=== PATIENT | female | born 1985 | race Caucasian/White ===

== ENCOUNTER 2017-08-08 13:09 | Emergency (ER) | payer OTHER ==
[2017-08-08] MEDS ORDERED: ADENOSINE 6 MG/2 ML VIAL ONE (13:23)
--- NOTE | 2017-08-08 13:25 | CPEKG ---
Heart Rate: 219 RR Interval: 274 QRSD Interval: 84 QT Interval: 212 QTC Interval: 405 P [place]: 0 QRS [place]: 60 T Wave [place]: 245 EKG Severity - ABNORMAL ECG - EKG Impression: SUPRAVENTRICULAR TACHYCARDIA EKG Impression: PROBABLE LVH WITH SECONDARY REPOL ABNRM EKG Impression: ST DEPRESSION, PROBABLY RATE RELATED Electronically Signed By: Adenike Contreras 08-Aug-2017 13:45:33
--- NOTE | 2017-08-08 13:31 | EDPHY ---
HPI/HX/ROS/PE/MDM Narrative: CHIEF COMPLAINT: Tachycardia HISTORY OF PRESENT ILLNESS: This patient is a 31 year old female complaining of rapid heart rate. She has history of sinus tachycardia, and reports brief intermittent episodes similar to today which self-resolved over 10-15 min. She wore a Holter monitor for one month in 2014 which did not capture any episodes. She was prescribed metoprolol , but is not currently taking that medication. Usually, her racing heart sensation resolves within 30 minutes. This is the first time she has presented to the emergency department. Today, the sensation began around 11:30am while she was in the passenger seat of the car. She can feel her heart racing. This is accompanied by a sensation of tightness which is increased with deep inspiration. The patient takes oral contraceptives, but otherwise does not take any medications. She denies history of clotting disorders. Family history positive for atrial fibrillation, CAD. No fever, chills, vomiting, diarrhea, urinary complaints, headache, lightheadedness. REVIEW OF SYSTEMS: Aside from elements discussed in the HPI, a comprehensive 10-point review of systems was reviewed and is negative. PAST MEDICAL HISTORY: Sinus tachycardia. SOCIAL HISTORY: Friend at bedside. No illicit drug or alcohol use. Occasional marijuana use. Former smoker, quit 2014. VITAL SIGNS: Reviewed by m. HR 273. Strong radial pulses. GENERAL: Well-developed, well-nourished, no respiratory distress. Somewhat anxious. HEENT: Atraumatic. Eyes: No icterus, no injection. Mouth: moist mucous membranes. No erythema or lesions. Neck: supple with no adenopathy. LUNGS: Clear to auscultation bilaterally, no wheezes, rhonchi or rales. CARDIAC: Extreme tachycardia. Regular. Monitor demonstrates SVT at 273. ABDOMEN: Soft, nontender, nondistended, bowel sounds normal. BACK: No CVA tenderness. EXTREMITIES: No trauma. No edema. Range of motion is normal throughout. NEURO: Alert and oriented, grossly nonfocal. SKIN: Warm and dry, no rash. PSYCHIATRIC: Normal mentation, no agitation. Portions of this note were transcribed by a medical laboratory technician. I personally performed a history, physical exam, medical decision making, and confirmed accuracy of information the transcribed note. ED Course: 13:15 Evaluated patient. Heart rate 225-241. Plan for stat EKG. 12-LEAD EKG: Please see the full report in [facility]. My interpretation: SVT. Attempted Valsalva maneuver with elevation of legs. Patient remains in SVT. IV established. 13:28 Plan to administer adenosine. 13:28 Administered 6mg IV adenosine. Pause noted on the monitor. Patient converted to sinus rhythm. Initially 160s but rapidly a decreasing with fluids. 13:29 HR 160. Plan for repeat EKG. Plan for chest x-ray, labs including CBC, chemistries troponin, d-dimer, BHCG. 13:52 12-LEAD EKG: Please see the full report in [facility]. My interpretation: Sinus tachycardia. Patient is feeling nauseous. Administered 4mg IV Zofran. Chest x-ray negative for acute processes. 14:40 Patient heart rate is 102. 14:[address] Herrera, room cleaner. Plan to d/c home in good condition. Referral to Dr. Flores, room cleaner, provided. She should resume taking metoprolol. Plan for additional labs including TSH. Reassessed patient. She does not wish to resume metoprolol due to side effects. I will prescribe diltiazem instead. Follow up and return precautions discussed. She is comfortable with this plan. Further discussions held with the patient after her SVT have been terminated. Patient did were Holter monitor for prolonged period of time and never had any episodes similar to today. She was placed on metoprolol. She does also have a history of underlying elevated heart rate usually in the 90s to low 100s. MDM: Critical care time spent by me, Dr. Contreras exclusively with this patient was 35 minutes, exclusive of PA time and exclusive of procedures. The organ system at risk was cardiovascular and I attempted several non pharmacologic maneuvers to break the patient's SVT, administered adenosine, re-evaluated at bedside, and consulted with Cardiology to prevent worsening of the patients condition. Critical care time included obtaining history, performing a physical exam, bedside monitoring of interventions, collecting and interpreting tests and discussion with consultants but not including time spent performing procedures. Differential diagnosis of the patient's narrow complex tachycardia was considered including but not limited to various causes of sinus tachycardia, SVT , atrial flutter and atrial fibrillation. - Data Points Imaging Results: Impression: Negative for acute cardiopulmonary abnormality.. Dictated By: Bismark Phillips MD Laboratory Results: Laboratory Results 08/08/17 13:25 08/08/17 13:25 Medications Given: Discontinued Medications Adenosine (Adenosine) 6 mg IVP EDNOW ONE Stop: 08/08/17 13:33 Last Admin: 08/08/17 13:28 Dose: 6 mg Sodium Chloride (Ns) 1,000 mls @ 0 mls/hr IV ONCE ONE PRN Reason: Wide Open Stop: 08/08/17 13:33 Last Admin: 08/08/17 13:33 Dose: 1,000 mls Sodium Chloride (Ns) 1,000 mls @ 0 mls/hr IV EDNOW ONE; Wide Open PRN Reason: Protocol Stop: 08/08/17 13:42 Last Admin: 08/08/17 14:07 Dose: 1,000 mls Ondansetron HCl (Zofran) 4 mg IVP EDNOW ONE Stop: 08/08/17 14:07 Last Admin: 08/08/17 14:09 Dose: 4 mg General Time Seen by Provider: 08/08/17 13:16 Initial Vital Signs: Initial Vital Signs Temperature (C) 36.4 C 08/08/17 13:13 Heart Rate 237 H 08/08/17 13:13 Respiratory Rate 22 H 08/08/17 13:13 O2 Sat (%) 100 08/08/17 13:13 O2 Delivery Mode Room Air O2 (L/minute) 2 Allergies/Adverse Reactions: No Known Allergies Allergy (Unverified 08/08/17 13:11) Home Medications: Medication Instructions Recorded Bcp 08/08/17 Diltiazem HCl [Diltiazem 24Hr ER] 120 mg PO DAILY #30 cap.er.24h 08/08/17 Departure - Departure Disposition: Home, Routine, Self-Care Clinical Impression: SVT (supraventricular tachycardia) Condition: Good Instructions: Diltiazem (By mouth), Supraventricular Tachycardia (ED) Additional Instructions: 1. Follow up with Dr. Floers, room cleaner, as soon as possible. Call today for an appointment. 2. Take Diltiazem as prescribed. 3. Return to the emergency department for recurrence of SVT, chest pain, shortness of breath, or other worsening of condition. Referrals: JOSE MELENDREZ [Primary Care Provider] - As per Instructions Manoj Flores MD [Medical Doctor] - As per Instructions Prescriptions: Diltiazem HCl [Diltiazem 24Hr ER] 120 mg PO DAILY #30 cap.er.24h Report Scribed for: Adenike Contreras Report Scribed by: Shannon Priest Date of Report: 08/08/17 Time of Report: 14:58
[2017-08-08] MEDS ORDERED: ADENOSINE 6 MG/2 ML VIAL IVP ONE (13:32)
[2017-08-08] MEDS ORDERED: NS 1,000 ML IV ONE ×2 (13:32→13:41)
[2017-08-08 13:47] LABS: PLATELET COUNT 351 10^3/uL (150-400)
--- NOTE | 2017-08-08 13:54 | CPEKG ---
Heart Rate: 123 RR Interval: 488 P-R Interval: 108 QRSD Interval: 90 QT Interval: 324 QTC Interval: 464 P [place]: 79 QRS [place]: 58 T Wave [place]: -28 EKG Severity - BORDERLINE ECG - EKG Impression: SINUS TACHYCARDIA EKG Impression: INFERIOR Q WAVES, PROBABLY NORMAL VARIATION Electronically Signed By: Guerrero Rodriguez 09-Aug-2017 16:24:17
[2017-08-08] MEDS ORDERED: ONDANSETRON 4 MG/2 ML VIAL ONE (14:03)
[2017-08-08] MEDS ORDERED: ONDANSETRON 4 MG/2 ML VIAL IVP ONE (14:06)
[2017-08-08 14:28] VITALS: RESP 16
[2017-08-08 15:25] VITALS: BP 123/96; PULSE 116; TEMP 97.7; O2SAT 98
== END 2017-08-08 15:26 | disposition home or self-care (01) ==
DX: I47.1 Supraventricular tachycardia (principal); E86.9 Volume depletion, unspecified; Z87.891 Personal history of nicotine dependence
CPT/HCPCS: 96374; J0153; J2405

== ENCOUNTER 2017-09-27 11:08 | Observation (INO) | payer OTHER ==
[2017-09-27] MEDS ORDERED: NS 1,000 ML IV ONE (11:11)
--- NOTE | 2017-09-27 11:23 | PDHPUP ---
History & Physical Update H&P update statement: This history and physical update is based on an assessment of the patient which was completed after admission or registration (within 24 hours), but prior to the surgery/procedure. H&P update: H&P reviewed & patient examined, no change in patient's condition since H&P completed
[2017-09-27] MEDS ORDERED: MIDAZOLAM 2 MG/2 ML VIAL IVP ONE (11:28)
--- NOTE | 2017-09-27 11:31 | CPEKG ---
Heart Rate: 89 RR Interval: 674 P-R Interval: 120 QRSD Interval: 90 QT Interval: 372 QTC Interval: 453 P [place]: 0 QRS [place]: 43 T Wave [place]: 18 EKG Severity - NORMAL ECG - EKG Impression: SINUS RHYTHM Electronically Signed By: Thien Ortega 27-Sep-2017 15:51:36
[2017-09-27 11:46] LABS: PLATELET COUNT 315 10^3/uL (150-400)
[2017-09-27 11:54] LABS: INR 0.9 (0.83-1.16); PROTIME(PATIENT) 12.4 SEC (12.0-15.0)
[2017-09-27] MEDS ORDERED: HEPARIN 10,000 UNIT/10 ML MDV (1,000 UNIT/ML) ONE (12:03)
[2017-09-27] MEDS ORDERED: LIDOCAINE 1% 300 MG/30 ML SDV ONE (12:03)
[2017-09-27] MEDS ORDERED: BUPIVACAINE 0.5% 30 ML SDV ONE (12:04)
[2017-09-27] MEDS ORDERED: DIAZEPAM 5 MG TAB ONE (12:04)
[2017-09-27] MEDS ORDERED: ISOPROTERENOL HCL/D5W 0.2 MG/50 ML BAG IV ONE (12:04)
[2017-09-27] MEDS ORDERED: DIAZEPAM 5 MG TAB PO ONE ×2 (12:06→12:15)
[2017-09-27] MEDS ORDERED: MIDAZOLAM 2 MG/2 ML VIAL ONE (12:09)
--- NOTE | 2017-09-27 12:17 | PDANEPAE ---
ANE History of Present Illness Patient presents for SVT ablation ANE Past Medical History - Cardiovascular History Hx Arrhythmias: Yes - Pulmonary History Hx Oxygen in Use at Home: No Hx Sleep Apnea: No - Endocrine History Hx Diabetes: No ANE Review of Systems Review of Systems: - Exercise capacity Exercise capacity: >=4 METS ANE Patient History - Allergies Allergies/Adverse Reactions: No Known Allergies Allergy (Unverified 08/08/17 13:11) - Home Medications Home medications: home medication list seen and reviewed Home Medications: Desogestrel-Ethinyl Estradiol [[place]] 1 each PO DAILY 08/08/17 [Last Taken 1 Day Ago ~09/26/17] Multivitamins [Multivitamin (*)] 1 each PO DAILY 09/21/17 [Last Taken 1 Day Ago ~09/26/17] - NPO status NPO Status: no food or drink >8 hours - Anes Hx Anes Hx: no prior problems - Smoking Hx Smoking Status: Former smoker ANE Labs/Vital Signs - Labs Result Diagrams: 09/27/17 11:31 09/27/17 11:31 - Vital Signs Height: 162.56 cm Weight: 58.06 kg ANE Physical Exam - Airway Neck exam: FROM Mallampati Score: Class 1 - Pulmonary Pulmonary: no respiratory distress - Cardiovascular Cardiovascular: regular rate and rhythym - ASA Status ASA Status: II ANE Anesthesia Plan Anesthesia Plan: general endotracheal anesthesia (RBA discussed)
[2017-09-27] MEDS ORDERED: fentaNYL 100 MCG/2 ML INJ ONE (12:25)
[2017-09-27] MEDS ORDERED: PROPOFOL 200 MG/20 ML VIAL ONE (12:25)
[2017-09-27] MEDS ORDERED: PROPOFOL/EMULSION 500 MG/50 ML BOTTLE IV ONE ×2 (12:26→13:41)
[2017-09-27] MEDS ORDERED: LIDOCAINE 2% 5 ML SDV ONE (12:29)
[2017-09-27] MEDS ORDERED: ROCURONIUM 50 MG/5 ML VIAL ONE ×3 (12:30→13:43)
[2017-09-27] MEDS ORDERED: DEXAMETHASONE 4 MG/ML VIAL ONE (13:00)
[2017-09-27] MEDS ORDERED: ONDANSETRON 4 MG/2 ML VIAL ONE (13:00)
[2017-09-27] MEDS ORDERED: NALOXONE HCL 0.4 MG/ML INJ IVP PRN (14:24)
[2017-09-27] MEDS ORDERED: fentaNYL 100 MCG/2 ML INJ IVP PRN (14:24)
[2017-09-27] MEDS ORDERED: ONDANSETRON 4 MG/2 ML VIAL IVP PRN (14:24)
[2017-09-27] MEDS ORDERED: LR 500 ML IV PRN (14:24)
[2017-09-27] MEDS ORDERED: NEOSTIGMINE METHYLSULFATE 10 MG/10 ML MDV ONE (14:26)
[2017-09-27] MEDS ORDERED: GLYCOPYRROLATE 0.2 MG/1 ML VIAL ONE ×3 (14:26)
--- NOTE | 2017-09-27 14:46 | POSTANESTH ---
Post Anesthetic Evaluation Cardiovascular Status: Similar to Pre-Op Cond Respiratory Status: Similar to Pre-op Cond. Level of Consciousness/Mental Status: Alert and Oriented Pain Control: Adequate, Prn Tx Ordered Nausea/Vomiting Control: Adequate, Prn Tx Ordered Complications Possibly Related to Anesthesia: None Noted
[2017-09-27] MEDS: ASPIRIN 325 MG TAB PO SCH (17:37)
[2017-09-28 04:12] LABS: PLATELET COUNT 311 10^3/uL (150-400)
[2017-09-28 07:55] VITALS: BP 134/86
--- NOTE | 2017-09-28 08:58 | CPEKG ---
Heart Rate: 65 RR Interval: 923 P-R Interval: 93 QRSD Interval: 88 QT Interval: 388 QTC Interval: 404 P [place]: 0 QRS [place]: 50 T Wave [place]: 25 EKG Severity - BORDERLINE ECG - EKG Impression: SINUS RHYTHM EKG Impression: SHORT IA INTERVAL, ACCELERATED AV CONDUCTION Electronically Signed By: Thien Ortega 28-Sep-2017 11:23:30
[2017-09-28] MEDS ORDERED: DESOGESTREL ETHINYL ESTRADIOL PO SCH (09:00)
[2017-09-28] MEDS ORDERED: MULTIVITAMINS 1 EACH TAB PO SCH (09:00)
--- NOTE | 2017-09-28 09:46 | EPPROC ---
Electrophysiology Procedure Note: PROCEDURES PERFORMED: 68480-40 EP evaluation with RA/RV/LA pace/record, with arrhythmia induction 57576-80 EP evaluation with RA/RV pace record, insert/reposition catheter, with arrhythmia induction 08556 Intracardiac catheter ablation, SVT arrhythmogenic focus 81261 3D mapping Fluoroscopy INDICATION: This is a 31 yr old female with past history of palpitation with presyncope on a few occasions. On the last one she came to the ER and was found to be in SVT. She was successfully treated with Adenosine. Pt wanted a nursing home solution and did not want to use meds. Hence it was decided to perform EP study with plan for ablation. PROCEDURE: Catheters & Anesthesia: The patient arrived in the Electrophysiology Laboratory in the fasting state. The right clavicular region, right groin, and left groin area were prepped and draped in the usual sterile manner. Anesthesiologist administered general anesthesia. Appropriate non-invasive blood pressure, pulse oximetry and end- tidal CO2 monitoring was established. All catheters were placed percutaneously using the modified Seldinger technique , and advanced into position under fluoroscopic guidance. One CRD2 catheter was advanced to the His-bundle position via the right femoral vein. . One #7 [place] deflectable catheter with 10 pairs of electrodes was placed via the right femoral vein into the coronary sinus. Programmed stimulation was performed from the right atrium, right ventricle and coronary sinus (left atrium). Parahisian pacing demonstrated constant H-A interval with changing V-A intervals and stimulus-A intervals during capture and loss of capture of proximal RBB proving retrograde conduction over AV node. AVNRT was induced easily during testing for AVWB. Ventricular extrastimuli delivered during tachycardia without altering antegrade His bundle activation did not advance next atrial potential, indicating that the tachycardia was not utilizing an accessory pathway for retrograde conduction. VA interval was 20 ms. CRUTCHER HELPER showed VA of 120ms. Mapping of the right atrium and coronary sinus during AVNRT identified earliest atrial activation above the tendon of [place] at a level slightly posterior to the level of the His bundle, consistent with retrograde conduction over the fast AV libra pathway. A #8 [place] deflectable quadrapolar electrode catheter (2mm-5mm-2mm spacing) with 4 mm tip electrode and sensor for the 3D mapping Carto system was advanced to the right atrium. 3 D mapping of the inter-atrial septum and coronary sinus was performed and location of the AV node was marked. RF applications were delivered to the region between the tricuspid annulus and the coronary sinus ostium, at the level of the upper edge of the coronary sinus ostium. Radiofrequency applications were also delivered along the roof of the proximal coronary sinus. Junctional rhythm occurred during all of the RF applications. Programmed stimulation was continued post ablation at baseline and during graded doses of isoproterenol upto 4mcg/min. Sustained AVNRT was not inducible. There were 0 echo beats. The catheters were removed. T. The patient was transferred to the cardiovascular holding area in stable condition. Vascular access sheaths were removed in the holding area. There were no apparent complications. 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 ( Slow/fast AVNRT). Successful ablation of the slow AV libra pathway with elimination of 1:1 antegrade conduction over the slow AV libra pathway, all retrograde conduction over the slow AV libra pathway and the inducibility of AVNRT. No complications.
[2017-09-28] MEDS: ASPIRIN 325 MG TAB PO SCH (10:08)
--- NOTE | 2017-09-28 10:17 | ASMTCASEMG ---
Living Arrangements What is your living Answers: With Spouse arrangement? Who do you live with? Type Of Residence What kind of residence do Answers: House you live in? Discharge Plan Comments Coordination Status Comments Notes: Pt is a 31 y/o female admitted for SVT. Pt will most likely d/c independent when medically stable. No therapies ordered at this time. CM available for changes. Plan: Independent Date Signed: 09/28/2017 10:16 AM Electronically Signed By:SACHA Mccullough
--- NOTE | 2017-09-28 10:35 | ECHO ---
[email or web address] [address] Main: [phone] Fax: [email or web address] Echocardiogram Name: JEWELL DOVE MR#: [id number] Study Date: 09/28/2017 Study Time: 06:00 AM Date of : 1985 Age: 31 year(s) Height: 162.6 cm (64 in.) Weight: 58.06 kg (128 lb.) BSA: 1.62 m2 Gender: Female Examination: Echo Indication: f/u EP study Image Quality: Technically Difficult Contrast: Requested by: Manoj Flores BP: 121 mmHg/80 mmHg Heart Rate: Rhythm: Normal sinus rhythm Indication: f/u EP study Procedure Staff Rn Bone Marrow Transplant: Chelsea Wilkins [facility] Reading Physician: Greg Mariee MD Requesting Provider: Conclusions: Normal global systolic LV function. EF is 65 %. Trivial mitral valve regurgitation. Cannot rule out bicuspid aortic valve. There is no aortic valve regurgitation. No aortic valve stenosis is present. There is no tricuspid valve regurgitation. Normal size aortic root measuring 2.2 cm. Measurements: Chambers Valvular Assessment AV/MV Valvular Assessment TV/PV Normal Normal Normal Name Value Range Name Value Range Name Value Range Ao Tiffany (MM): 2.2 cm (2.2 cm-3.7 AV Vmax: 1.05 m/s (1 m/s-1.7 PV Vmax: 0.79 m/s (0.6 m/s-0.9 cm) m/s) m/s) IVSd (2D): 0.7 cm (0.6 cm-1.1 AV maxP mmHg ( - ) PV PGmax: 2 mmHg ( - ) cm) LVOT Vmax: 0.88 m/s (0.7 m/s-1.1 LVDd (2D): 4.1 cm (3.9 cm-5.3 m/s) cm) LVDs (2D): 2.9 cm (2.1 cm-4 cm) LVPWd (2D): 0.8 cm ( - ) LVEF (BP): 65 % (>=55 %) RVDd(2D): 2.8 cm (1.9 cm-3.8 cmmm) Continued Measurements: Chambers Valvular Assessment AV/MV Name Value Name Value Patient: JEWELL DOVE Study Date: 09/28/2017 Page 1 of 2 06:00 AM LADs Lon.2 cm MV DecTime: 169 m/s LA Area: 8.6 cm2 MV E' Septal: 0.09 m/s RA Area: 7.0 cm2 MV E/E' Septal: 9.90 MV E/E' Lateral: 8.60 Additional Vessels Name Value Ao Ascendin.4 cm Findings: Left Ventricle: Normal size left ventricle. No LV hypertrophy. Normal global systolic LV function. EF is 65 %. No regional wall motion abnormality. Normal diastolic LV function. Right Ventricle: Normal size right ventricle. Normal RV function. Left Atrium: The left atrium is normal in size. Right Atrium: The right atrium is normal in size. Mitral Valve: The mitral valve is normal in appearance and function. Trivial mitral valve regurgitation. No mitral stenosis is present. Aortic Valve: Cannot rule out bicuspid aortic valve. There is no aortic valve regurgitation. No aortic valve stenosis is present. Tricuspid Valve: The tricuspid valve is normal in appearance and function. There is no tricuspid valve regurgitation. Pulmonary artery pressure is not obtained due to inadequate TR jet. Pulmonic Valve: The pulmonic valve is normal in appearance and function. There is no pulmonic regurgitation seen. Aorta: The aorta is normal. Normal size aortic root measuring 2.2 cm. Normal size ascending aorta measuring 2.4 cm. IVC: The IVC is normal sized. No foreign body in inferior vena cava. Pericardium: Trivial anterior pericardial effusion. (No Signature Object) Patient: JEWELL DOVE Study Date: 09/28/2017 Page 2 of 2 06:00 AM [id number]
--- NOTE | 2017-09-28 12:24 | GDS ---
[f rep st] DISCHARGE SUMMARY DISCHARGE DIAGNOSIS: Supraventricular tachycardia, status post atrioventricular reentrant tachycardi a ablation in this admission. PROCEDURES: 1. AVNRT using slow AV libra pathway for antegrade conduction and fast AV libra pathway for retrogra de conduction, status post successful ablation of the slow AV libra pathway with elimination one-to-o ne antegrade conduction over the slow AV libra pathway, all retrograde conduction over the slow AV no renetta pathway and inducibility of AVNRT. 2. 09/28/2017, echocardiogram which shows EF of 65, trivial MR, cannot rule out bicuspid aortic valv e, no aortic valve stenosis, no TR. BRIEF HISTORY: Please see dictated H and P from our office for complete details. In brief, Ms. Andi Escoto is a 31-year-old female who has been having ongoing palpitations for years. She has had ch emical cardioversions with ED visits in the past. She was seen by Dr. Flores and patient was agreeable to EP study with eye toward ablation. This was done on 09/27/2017. On day of discharge, patient de nies any groin pain. She has had no arrhythmias on telemetry and echo is stable. PHYSICAL EXAMINATION: VITAL SIGNS: On day of discharge, blood pressure 134/86, heart rate 93, respi rations 15, O2 saturation 99% on room air. GENERAL: She is a very pleasant female in no apparent di stress. HEAD: Normocephalic, atraumatic. EYES: PERRL. HEART: Regular rate and rhythm. LUNGS: C lear. SKIN: Right groin site with no hematoma and no bruit. LABORATORY DATA: CBC with WBC 8.94, hemoglobin of 13.4, hematocrit 40.5, platelet count of 311. BMP with sodium 140, potassium 4.7, chloride 108, CO2 22, BUN 9, creatinine 0.6, glucose 98. RESULTS PENDING: None. DIET: Per previous. ACTIVITY: Groin precautions reviewed. DISCHARGE MEDICATIONS: Please see medication reconciliation. She may continue her multivitamin and estradiol. She will discontinue her diltiazem. New medication is aspirin 325 p.o. daily. FOLLOWUP INSTRUCTIONS: 1. Groin precautions. 2. Monitor borderline blood pressures. 3. Follow up with Dr. Flores in 1 month's time. /[id number]
== END 2017-09-28 12:01 | disposition home or self-care (01) ==
LOC: FCATH 11:08 → F2W 14:27
PROVIDERS: ADMIT Internal Medicine Cardiovascular Disease; ATTEND Internal Medicine Cardiovascular Disease
PROC: 4A023FZ Measurement of Cardiac Rhythm, Percutaneous Approach (ICD-10-PCS; principal; 2017-09-27)
PROC: 02K83ZZ Map Conduction Mechanism, Percutaneous Approach (ICD-10-PCS; principal; 2017-09-27)
PROC: 5A1223Z Performance of Cardiac Pacing, Continuous (ICD-10-PCS; principal; 2017-09-27)
PROC: 02583ZZ Destruction of Conduction Mechanism, Percutaneous Approach (ICD-10-PCS; principal; 2017-09-27)
PROC: B2141ZZ Fluoroscopy of Right Heart using Low Osmolar Contrast (ICD-10-PCS; principal; 2017-09-27)
PROC: 02H73MZ Insertion of Cardiac Lead into Left Atrium, Percutaneous Approach (ICD-10-PCS; principal; 2017-09-27)
DX: I47.1 Supraventricular tachycardia (principal)
CPT/HCPCS: 93005; 93306; 93613; 93621; 93623; 93653; C1732; G0378; C1730; J1100; J1644; J2250; J2405; J2704; J3010